=== PATIENT | male | born 1995 | race American Indian/Alaskan Native ===

== ENCOUNTER 2018-04-30 20:22 | Emergency (ER) | payer SELFPAY ==
[2018-04-30 21:00] VITALS: BMI 24.3
[2018-04-30 21:02] VITALS: BP 115/68; PULSE 81; RESP 18; TEMP 98.9; O2SAT 99
--- NOTE | 2018-04-30 21:15 | ED PDOC ---
Arrival/HPI - General Chief Complaint: Lower Extremity Problem/Injury Time Seen by Provider: 04/30/18 20:25 Historian: Patient - History of Present Illness Narrative History of Present Illness (Text): 04/30/18 21:13 23-year-old male presents complaining of left ankle pain and swelling after he fell off a ladder and states that he rolled his left ankle. Since then he has had pain and swelling, he is able to put weight on the ankle. Otherwise he reports no numbness, no other injury, has no other complaints. Past Medical History - Infectious Disease Hx of Infectious Diseases: None - Tetanus Immunization Tetanus Immunization: Up to Date, >10 years Ago - Psychiatric Hx Depression: No Hx Emotional Abuse: No Hx Physical Abuse: No Hx Substance Use: No - Suicidal Assessment Feels Threatened In Home Enviroment: No Family/Social History Family/Social History: No Known Family HX Smoking Status: Never Smoked Hx Alcohol Use: Yes Frequency of alcohol use: Few days per week Hx Substance Use: No Hx Substance Use Treatment: No Allergies/Home Meds Allergies/Adverse Reactions: Allergies No Known Allergies Allergy (Verified 04/30/18 21:00) Review of Systems - Review of Systems Constitutional: absent: Fatigue, Fevers Musculoskeletal: Arthralgias, Joint Swelling. absent: Back Pain, Neck Pain Skin: absent: Rash, Pruritis, Skin Lesions Physical Exam - Physical Exam Narrative Physical Exam (Text): 04/30/18 21:14 GENERAL APPEARANCE: Patient is awake, alert, oriented x 3, in mild painful distress. SKIN: Warm, dry; (-) cyanosis. LOWER EXTREMITY: Ankle: (+) swelling, tenderness of the medial aspect of the ankle; (+) swelling and tenderness of the lateral ankle; (+) limited range of motion secondary to pain. Achilles tendon intact and nontender. Knee and foot: (-) tenderness. CARDIOVASCULAR: (+) distal pulse. NEUROLOGIC: (+) distal sensation. Vital Signs Temp Pulse Resp BP Pulse Ox 04/30/18 21:01 98.9 F 81 18 115/68 99 Medical Decision Making ED Course and Treatment: 04/30/18 21:14 XR L ankle and foot ordered. XR L ankle : no fracture, no dislocation. XR L foot : no fracture, no dislocation. XR results d/w the patient, diagnosis of sprain d/w the patient and advised RICE to the ankle. [place] dressing applied, instructed on crutch walking. Advised to follow up with ortho referral in 1-2 days without fail. Advised to take medication as prescribed. Return to the emergency room at any time for any new or worsening symptoms. Patient states he fully agrees with and understands discharge instructions. States that he agrees with the plan and disposition. Verbalized and repeated discharge instructions and plan. I have given the patient opportunity to ask any additional questions. 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 Disposition/Present on Arrival - Present on Arrival Any Indicators Present on Arrival: No History of DVT/PE: No History of Uncontrolled Diabetes: No Urinary Catheter: No History of Decub. Ulcer: No History Surgical Site Infection Following: None - Disposition Have Diagnosis and Disposition been Completed?: Yes Diagnosis: Left ankle sprain Disposition: HOME/ ROUTINE Disposition Time: 22:00 Patient Plan: Discharge Patient Problems: Current Active Problems Problem Status Onset Left ankle sprain Acute Condition: STABLE Discharge Instructions (ExitCare): Ankle Sprain (DC) Additional Instructions: Thank you for letting us take care of you today. You were treated for left ankle sprain. The emergency medical care you received today was directed at your acute symptoms. If you were prescribed any medication, please fill it and take as directed. It may take several days for your symptoms to resolve. Return to the Emergency Department if your symptoms worsen, do not improve, or if you have any other problems. Please orthopedic referral provided in 2 days for re-evaluation and follow up. Bring any paperwork you were given at discharge with you along with any medications you are taking to your follow up visit. Our treatment cannot replace ongoing medical care by a primary care provider (PCP) outside of the emergency department. Thank you for allowing the [facility] team to be part of your care today. If you had an X-Ray : A Radiologist will review the ED reading if any change in treatment is needed we will contact you. Prescriptions: Naproxen 500 mg PO BID #30 tab Referrals: PCP,NO [Primary Care Provider] - Follow up with primary Dejuan Freitas III, MD [Medical Doctor] - Follow up with primary Forms: [employer] (Romanian), WORK NOTE
--- NOTE | 2018-05-01 08:00 | RAD ---
Date of service: 04/30/2018 PROCEDURE: Left Foot Radiographs. HISTORY: pain COMPARISON: None. FINDINGS: BONES: No acute fracture appreciated. First metatarsal-phalangeal joint space narrowing and dorsal spurring noted. Additional spurring at the medial tibiotalar joint. JOINTS: Arthrosis as above SOFT TISSUES: Mild soft tissue swelling dorsal and plantar aspect-meta tarsal head levels and over the medial tibiotalar joint per oblique views OTHER FINDINGS: None. IMPRESSION: No fracture or lytic lesion. No periosteal reaction. 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 Soft tissue swelling. No gas-forming cellulitis noted
--- NOTE | 2018-05-01 08:01 | RAD ---
Date of service: 04/30/2018 PROCEDURE: Left Ankle Radiographs. HISTORY: pain COMPARISON: None available. FINDINGS: BONES: No fracture appreciated. 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 Subarticular arthro pathic cystic change anterior tibial plafond.. Ankle mortise maintained. Talar dome intact SOFT TISSUES: Medial and lateral ankle level soft tissue swelling. OTHER FINDINGS: None. IMPRESSION: Soft tissue swelling with arthro pathic changes as above. No fracture appreciated
== END 2018-04-30 22:48 | disposition home or self-care (01) ==
LOC: ED 20:22
DX: S93.402A Sprain of unspecified ligament of left ankle, initial encounter (principal); W11.XXXA Fall on and from ladder, initial encounter